=== PATIENT | female | born 1995 | race Caucasian/White ===

== ENCOUNTER 2018-07-04 17:01 | Emergency (ER) | payer OTHER, SELFPAY ==
[2018-07-04 17:03] VITALS: BP 131/73; PULSE 78; RESP 16; TEMP 36.1; O2SAT 99; BMI 21.6
[2018-07-04 19:34] VITALS: PULSE 76; RESP 14
[2018-07-04] MEDS: Ondansetron 4 MG/2 ML Vial IV (20:58)
[2018-07-04] MEDS: 0.9% Normal Saline 1,000 ML 1000 ML IV (20:58)
[2018-07-04] MEDS: 0.9% Normal Saline 1,000 ML 250 ML IV (20:58)
[2018-07-04 20:59] VITALS: PULSE 84; RESP 16
[2018-07-04 21:03] LABS: Absolute Lymphocyte Count 1.98 X10^3/ul (0.83-4.51); Basophil# 0.02 X10^3/uL; Basophil% 0.2 % (0-1); Eosinophil# 0.22 X10^3/uL; Eosinophils% 2.2 % (0-5); Hemoglobin 11.5 g/dl (12.0-15.0); Lymphocyte # 1.98 X10^3/ul (4.0); Lymphocyte % 19.8 % (19-41); Mean Corp Hgb Conc 35.9 g/gl (32-36); Mean Corpuscular Hgb 30.9 pg (27.0-32.0); Mean Platelet Vol. 10.1 fl (6.2-12.0); Neutrophil # 6.95 X10^3/uL (2.7-7.7); Neutrophil % 69.6 % (47-70); Platelet Count 202 K/mm3 (150-450); RBC Distribution Width CV 13.7 % (11.6-14.6); RBC Distribution Width SD 42.2 fl (35.1-43.9); Red Blood Count 3.72 M/mm3 (4.2-5.4)
[2018-07-04 21:09] LABS: POSITIVE COUNT NO; POSITIVE DIFFERENTIAL NO; POSITIVE MORPHOLOGY NO
[2018-07-04 21:12] LABS: Anion Gap 9 (5-15); BUN 5 mg/dL (7-18); BUN/Creat Ratio 8.3 RATIO (10-20); Calcium,Total 8.2 mg/dL (8.5-10.1); Chloride 106 mmol/L (98-107); Creatinine, Serum 0.61 mg/dL (0.55-1.02); EST Glomerular Filtration Rate 130 mL/min (>60); Est Glom Filt Rate - Afr Amer 158 mL/min (>60); Estimated Creatinine Clearance 140.68 ml/min; Glucose 78 mg/dL (74-106); Potassium 3.6 mmol/L (3.5-5.1); Sodium Level 139 mmol/L (136-145)
[2018-07-04 21:15] LABS: Bacteria 0 SEEN /hpf (None Seen); Mucous, Urine 0 SEEN /hpf (<or=2+); Red Blood Cells-Urine 0 SEEN /hpf (0-5)
[2018-07-04 21:22] LABS: Color, Urine Yellow (Yellow); Glucose, Dipstick Normal (Normal); Ketone-Dipstick Negative (Negative); Leukocyte Esterase-Dipstick 500 /ul (Negative); Nitrite-Dipstick Negative (Negative); Occult Blood-Urine Negative /ul (Negative); Protein-Dipstick Negative (Negative); Specific Gravity, Urine 1.015 (1.002-1.030); Urine Bilirubin Dipstick Negative (Negative); Urine Clarity Clear (Clear); Urine Urobilinogen Normal (Normal)
[2018-07-04 21:29] LABS: Squamous Epithelial Cells - UA 0-5 SEEN /hpf (5-10); White Blood Cells 0-5 SEEN /hpf (0-5)
--- NOTE | 2018-07-04 21:56 | ED.VISSUMM ---
- ER Visit Summary Date of Service: 07/04/18 Chief Complaint: Nausea, vomiting, dehydrated History of Present Illness: The patient is a 22 F who is currently 13 weeks . She had nausea, vomiting, diarrhea over the past 2 days. Today she felt lightheaded and near syncope. She has not had vomiting today. She denies dysuria. She states she had some nausea early on the recently had not had an issue with this. Physical Examination: Vital signs are unremarkable. Patient is sitting upright in the bravo chair. Head neck examination reveals moist mucous membranes. Heart is regular rate and rhythm. Lung sounds are clear. Abdomen is soft nontender. Active bowel sounds are noted throughout. Test Results: CBC was normal white count. Hemoglobin is 11.5. Chemistry studies normal. Urinalysis shows 500 leukocyte esterase with 0-5 white cells and 0 bacteria. Emergency Department Course and Treatment: Patient is given IV fluids and Zofran. At this time she is tolerating p.o. Nausea is significantly improved. She will be given a prescription for Zofran at home. Treatment Plan: [] Disposition: Discharge Impression: Nausea, improved This note was generated with [employer] dictation software. It may contain incorrect words, spelling, and punctuation that were not noted in review of the chart prior to signing ED Disposition - Plan for ED Patient: Chief Complaint: Nausea/Vomiting/Diarrhea Referrals: Care Physician,No Primary [Primary Care Provider] -
--- NOTE | 2018-07-04 21:59 | ED.DEP ---
ED Disposition - Plan for ED Patient: Disposition: Home or Assisted Living Chief Complaint: Nausea/Vomiting/Diarrhea Instructions: ED Nausea Vomiting Prescriptions: Ondansetron [Zofran Odt] 4 mg PO Q8H PRN PRN #10 tablet PRN Reason: Nausea Referrals: Kevin Aiken [STAFF PHYSICIAN] - 3-5 Days if not improving
[2018-07-04] MEDS: Ondansetron ODT 4 MG Tablet PO (22:19)
[2018-07-04 22:20] VITALS: BP 124/74; PULSE 83; RESP 18; O2SAT 97
--- NOTE | 2018-07-04 22:20 | ED.RN ---
THIS NURSE REVIEWED D/C INSTRUCTIONS WITH PT.PT VERBALIZED UNDERSTANDING OF INSTRUCTIONS. IV D/C. IV CATHETER INTACT. PT DENIES FURTHER NEEDS OR QUESTIONS AT THIS TIME. PT AMBULATES FROM DEPARTMENT ON OWN WITHOUT ASSISTANCE FROM STAFF
== END 2018-07-04 22:22 | disposition home or self-care (01) ==
PROVIDERS: Emergency Provider Emergency Medicine
DX: O26.891 Other specified pregnancy related conditions, first trimester (principal); R11.2 Nausea with vomiting, unspecified; R19.7 Diarrhea, unspecified; R42 Dizziness and giddiness; Z3A.13 13 weeks gestation of pregnancy
CPT/HCPCS: 80048; 81001; 85025; 96361; 96374; 99283; J7030; A4216

== ENCOUNTER 2019-01-08 01:55 | Inpatient (IN) | payer OTHER, SELFPAY ==
[2019-01-08 02:34] VITALS: BMI 26.9
[2019-01-08] MEDS: Lactated Ringers 1,000 ML 50 ML IV ×4 (02:35→22:48)
[2019-01-08 02:52] LABS: Hemoglobin 12.6 g/dl (12.0-15.0); Mean Corp Hgb Conc 34.1 g/gl (32-36); Mean Corpuscular Hgb 30.4 pg (27.0-32.0); Mean Corpuscular Volume 89.2 fL (81-99); Mean Platelet Vol. 10.9 fl (6.2-12.0); Platelet Count 189 K/mm3 (150-450); RBC Distribution Width CV 16.6 % (11.6-14.6); RBC Distribution Width SD 53.9 fl (35.1-43.9); Red Blood Count 4.15 M/mm3 (4.2-5.4); White Blood Count 10.4 K/mm3 (4.4-11.0)
[2019-01-08 02:57] LABS: Scan Indicated on CBC? Y/N NO
[2019-01-08] MEDS: Nalbuphine 10 MG/ML Ampul IV (03:57)
[2019-01-08 04:08] LABS: Group B Strep DNA By PCR Negative (Negative); Internal Control PASS; Probe Check PASS; Specimen Processing Control PASS
[2019-01-08] MEDS: Ondansetron 4 MG/2 ML Vial IV ×2 (05:23→14:45)
[2019-01-08] MEDS: fentaNYL-bupivacaine (epidural) 100 ML BAG EPIDURAL ×4 (06:34→22:25)
[2019-01-08] MEDS: Oxytocin 30 units/NS 500 ml 30 UNITS/500 ML IV.SOLN IV (08:30)
--- NOTE | 2019-01-08 09:14 | PCM.HP.OB ---
- Problem List (1) PROM (premature rupture of membranes) Status: Acute (2) Positive GBS test Status: Acute (3) Iron deficiency anemia Status: Acute (4) History of depression Status: Acute History Date of Admission: 01/08/19 Final LEE: 01/05/19 Gestational age: 40 Weeks and 3 Days History of this : This is a 23 year-old, G [1], P [000], at 40 weeks gestational age. Presented to L&D with complaint of leakage of fluid around 0100. Upon arrival, gross rupture of membranes. No contractions. Allergies No Known Allergies Allergy (Verified 01/08/19 02:31) Home Medications: Home Medications Vits [Prenatabs FA] 1 tablet PO DAILY 07/04/18 Famotidine [Pepcid] 20 mg PO BID 01/08/19 Smoking Status: Former smoker Heart Tracin, moderate variability, accels, no decels TOCO: every 2-4 minutes, mild. Pitocin at 1 mu History Past Pregnancies: Past Pregnancies Delivery Date Name GA/Weeks Outcome Route Weight Infant Gender Labor Length Anesthesia Delivery Location Provider FOB Labs: CF negative RPR negative Rubella Immune HBsAG HIV negative. A positive GC/CT negative GBS bacteruria in beginning of . Expected Delivery Method: Spontaneous Vaginal Review of Systems Constitutional: Denies: Chills, Fever, Weight Change HEENT: Denies: Head Aches, Sinus Congestion, Sinus Drainage Cardiovascular: Denies: Chest Pain, Palpitations Respiratory: Denies: Cough, Shortness of breath at rest, Sputum production Gastrointestinal: Denies: Abdominal Pain, Nausea, Vomiting Genitourinary: Denies: Dysuria Neurological: Denies: Numbness, Tingling, Focal weakness Psychiatric: Denies: Anxiety, Depression, Homicidal Ideations, Suicidal Ideations Physical Exam General: Alert, Oriented x3, No apparent distress HEENT: Atraumatic, Normocephalic Cardiovascular: Regular rate, Regular Rhythm, No murmurs Lungs: Clear to auscultation, Normal air movement, No rhonchi, No wheeze Abdomen: Bowel Sounds Present, Soft, Gravid Extremities:: No edema RELIGIOUS ACTIVITIES DIRECTOR: Normal external genitalia Estimated gestational size: Appropriate for gestational size Presentation: Cephalic Assessment/Plan All Active Problems PROM (premature rupture of membranes) (Acute) Positive GBS test (Acute) Iron deficiency anemia (Acute) History of depression (Acute) This is a 23 year-old, G [1], P [0], at 40 weeks gestational age. A: Postdates PROM Category 1 FHT P: 1) Admit to L&D. 2) Pitocin augmentation 3) notified of patient status and plan of care.
[2019-01-08] MEDS: Amnioinfusion- 0.9% NS 1,000 ML IV.SOLN. INTRA-UTER (13:30)
--- NOTE | 2019-01-08 14:35 | PCM.PN.OB ---
Patient Problems: Active and Suspected Problems PROM (premature rupture of membranes) (Acute) Positive GBS test (Acute) Iron deficiency anemia (Acute) History of depression (Acute) Subjective: Called to L&D for vaginal bleeding and clots by ray Toth RN. Patient comfortable in bed with epidural. Objective: FHT: 125, moderate variability, accels, occasional variable decels. Category 2 FHT.Amnioinfusion started and resolved. TOCO: every 2-4 minutes. Cervical exam: 6cm/80%/-1. Blood tinged fluid with few small clots. No sign of abruption at this time. - Physical Exam Weight: 171 lb 15.369 oz Body Mass Index (BMI) 26.9 Intake and Output for Last 24 Hours 01/06/19 01/07/19 01/08/19 22:59 23:59 23:59 Intake Total 1480 / 1480 Output Total 500 / 500 Balance 980 / 980 Laboratory Tests Past 24 Hrs 01/08/19 01/08/19 01/08/19 02:30 02:30 02:30 WBC 10.4 RBC 4.15 L Hgb 12.6 Hct 37.0 MCV 89.2 MCH 30.4 MCHC 34.1 RDW 16.6 H RDW Differential 53.9 H Plt Count 189 MPV 10.9 Group B Strep DNA Negative Specimen Comment Not Reportable Blood Type A POSITIVE Antibody Screen NEGATIVE Medical Necessity - Tobacco Use Smoking Status: Never smoker Assessment/Plan All Active Problems PROM (premature rupture of membranes) (Acute) Positive GBS test (Acute) Iron deficiency anemia (Acute) History of depression (Acute) A: Active labor, progressing Category 2 FHT P: 1) Active labor progressing, continue with active management and pitocin augmentation. 2) Amnioinfusion 3) notified of patient status and agrees with plan.
[2019-01-08] MEDS: DiphenhydrAMINE 50 MG/ML Syringe 25 MG IV (18:02)
--- NOTE | 2019-01-08 20:00 | PCM.PN.OB ---
Patient Problems: Active and Suspected Problems PROM (premature rupture of membranes) (Acute) Positive GBS test (Acute) Iron deficiency anemia (Acute) History of depression (Acute) Subjective: Resting in bed. Family at bedside. Comfortable with epidural. IUPC and FSE on. Objective: FHT 145, moderate variability, variable decelerations, Category 2 TOCO: every 2-3 minutes. Was having 400mvus. Pitocin turned down to 2mu's. Amnioinfusion at 100ml per hour. Cervical exam: 7cm/75%+1, ROP. Patient previously asynclitic. - Physical Exam Weight: 171 lb 15.369 oz Body Mass Index (BMI) 26.9 Intake and Output for Last 24 Hours 01/06/19 01/07/19 01/08/19 22:59 23:59 23:59 Intake Total 4856 / 4856 Output Total 1050 / 1050 Balance 3806 / 3806 Laboratory Tests Past 24 Hrs 01/08/19 01/08/19 01/08/19 02:30 02:30 02:30 WBC 10.4 RBC 4.15 L Hgb 12.6 Hct 37.0 MCV 89.2 MCH 30.4 MCHC 34.1 RDW 16.6 H RDW Differential 53.9 H Plt Count 189 MPV 10.9 Group B Strep DNA Negative Specimen Comment Not Reportable Blood Type A POSITIVE Antibody Screen NEGATIVE Medical Necessity - Tobacco Use Smoking Status: Former smoker Assessment/Plan All Active Problems PROM (premature rupture of membranes) (Acute) Positive GBS test (Acute) Iron deficiency anemia (Acute) History of depression (Acute) A: Active labor, protracted Category 2 FHT P: 1) Continue with expectant management. 2) Positional changes for ROP position 3) notified of patient status and cervical change.
[2019-01-08] MEDS: Acetaminophen 325 MG Tablet PO (21:26)
--- NOTE | 2019-01-08 21:28 | PCM.PN.OB ---
Patient Problems: Active and Suspected Problems PROM (premature rupture of membranes) (Acute) Positive GBS test (Acute) Iron deficiency anemia (Acute) History of depression (Acute) Subjective: Resting in bed on right side. Objective: 135, moderate variability, accels, no decels, Category 1 FHT TOCO: every 2-4 minutes, coupling. Pitocin at 2mu's Cervix 8cm/80%/+2. Amnioinfusion continues. Oral Temperature 100.5 - Physical Exam Weight: 171 lb 15.369 oz Body Mass Index (BMI) 26.9 Intake and Output for Last 24 Hours 01/06/19 01/07/19 01/08/19 22:59 23:59 23:59 Intake Total 4856 / 4856 Output Total 1050 / 1050 Balance 3806 / 3806 Laboratory Tests Past 24 Hrs 01/08/19 01/08/19 01/08/19 02:30 02:30 02:30 WBC 10.4 RBC 4.15 L Hgb 12.6 Hct 37.0 MCV 89.2 MCH 30.4 MCHC 34.1 RDW 16.6 H RDW Differential 53.9 H Plt Count 189 MPV 10.9 Group B Strep DNA Negative Specimen Comment Not Reportable Blood Type A POSITIVE Antibody Screen NEGATIVE Medical Necessity - Tobacco Use Smoking Status: Former smoker Assessment/Plan All Active Problems PROM (premature rupture of membranes) (Acute) Positive GBS test (Acute) Iron deficiency anemia (Acute) History of depression (Acute) A:Active labor progressing Category 1 FHT P: 1) Labor progressing. present and completed cervical exam. Ok to continue with active management at this time. 2) Maternal Fever, Tylenol given. Will continue to monitor. 3) Continue with pitocin augmentation.
[2019-01-08] MEDS: 0.9% Saline Lock 10 ML Syringe IV (22:31)
[2019-01-08] MEDS: Amnioinfusion- 0.9% NS 1,000 ML IV.SOLN. 1000 ML INTRA-UTER (22:48)
[2019-01-09] MEDS: Oxytocin 30 units/NS 500 ml 30 UNITS/500 ML IV.SOLN 334 UNITS IV (00:12)
[2019-01-09] MEDS: Oxytocin 30 units/NS 500 ml 30 UNITS/500 ML IV.SOLN 167 UNITS IV (00:42)
--- NOTE | 2019-01-09 00:50 | PCM.OB.VAG ---
- Problem List (1) PROM (premature rupture of membranes) Status: Acute (2) Positive GBS test Status: Acute (3) Iron deficiency anemia Status: Acute (4) History of depression Status: Acute (5) (normal spontaneous vaginal delivery) Status: Acute (6) Periurethral abrasion, delivered, current hospitalization Status: Acute Vaginal Delivery Maternal Presentation: Spontaneous Rupture of Membranes Amniotic Membrane Rupture Type: Spontaneous at home Rupture of Membrane time: 01/08/19 at 0100 Amniotic Fluid Description: Clear Final LEE Source: LMP [place] doctor who attended delivery (if requested by OB): Starr Jean Date of Procedure: 01/09/19 Pre-Operative Diagnosis: PROM Post-Operative Diagnosis: Surgery/ Procedure Performed: Spontaneous Vaginal Delivery Type of Anesthesia: Epidural, Local with 1% lidocaine Description of Procedure: Progressed to complete with strong urge to push. head +3 station with first maternal push, good pushing effort and head delivered after 20 minutes of maternal pushing effort. of viable male over intact perineum. Bilateral periurethral lacerations present. Infant head delivered and shoulders forth coming. Anterior nuchal hand and shoulders transverse. Allowed restitution and good maternal pushing effort. Maternal head of bed already lowered, maternal legs back to assist with maternal positioning. Shoulders forthcoming and delivered, placed on maternal abdomen. 1 minute 30 seconds from delivery of head to delivery of body. called to delivery once head delivered. Body dystocia, anterior nuchal hand, loose CAN x1, delivered through. delivered and placed on maternal abdomen. Poor tone and weak cry. Cord clamped and cut and taken to warmer for evaluation, required CPAP. APGARS 7,7,9. Pitocin started for active 3rd stage management. Placenta delivered via maternal effort, intact, 3 vessel cord. Perineum inspected and revealed bilateral periurethral lacerations, repaired under epidural analgesia and 1% Lidocaine. Fundus firm, hemostasis achieved. Vaginal sweep completed, sponge and instrument count correct. Mother planning to breastfeed. Mom and baby stable and placed skin to skin with SpO2 monitoring. Family bonding well. Presentation: Vertex Placental Delivery Description: Spontaneous Placenta Disposition: [facility] Cord Vessel Description: 3 Vessels Cord Entanglement: Around neck x 1, loose Estimated Blood Loss: 300 ml A gender: Male (1 minute): 7 (5 minute): 7 - 10 minute =9 Episiotomy Description: None Laceration: Periurethral Extnsion/lac Medications given after delivery: IV Pitocin Complications: None
--- NOTE | 2019-01-09 01:06 | OP.PCM_ITS ---
- Problem List (1) PROM (premature rupture of membranes) Status: Acute (2) Positive GBS test Status: Acute (3) Iron deficiency anemia Status: Acute (4) History of depression Status: Acute (5) (normal spontaneous vaginal delivery) Status: Acute (6) Periurethral abrasion, delivered, current hospitalization Status: Acute Vaginal Delivery Maternal Presentation: Spontaneous Rupture of Membranes Amniotic Membrane Rupture Type: Spontaneous at home Rupture of Membrane time: 01/08/19 at 0100 Amniotic Fluid Description: Clear Final LEE Source: LMP [place] doctor who attended delivery (if requested by OB): Starr Jean Date of Procedure: 01/09/19 Pre-Operative Diagnosis: PROM Post-Operative Diagnosis: Surgery/ Procedure Performed: Spontaneous Vaginal Delivery Type of Anesthesia: Epidural, Local with 1% lidocaine Description of Procedure: Progressed to complete with strong urge to push. head +3 station with first maternal push, good pushing effort and head delivered after 20 minutes of maternal pushing effort. of viable male over intact perineum. Bilateral periurethral lacerations present. Infant head delivered and shoulders forth coming. Anterior nuchal hand and shoulders transverse. Allowed restitution and good maternal pushing effort. Maternal head of bed already lowered, maternal legs back to assist with maternal positioning. Shoulders forthcoming and delivered, placed on maternal abdomen. 1 minute 30 seconds from delivery of head to delivery of body. called to delivery once head delivered. Body dystocia, anterior nuchal hand, loose CAN x1, delivered through. delivered and placed on maternal abdomen. Poor tone and weak cry. Cord clamped and cut and taken to warmer for evaluation, required CPAP. APGARS 7,7,9. Pitocin started for active 3rd stage management. Placenta delivered via maternal effort, intact, 3 vessel cord. Perineum inspected and revealed bilateral periurethral lacerations, repaired under epid ural analgesia and 1% Lidocaine. Fundus firm, hemostasis achieved. Vaginal sweep completed, sponge and instrument count correct. Mother planning to breastfeed. Mom and baby stable and infant placed skin to skin with SpO2 monitoring. Family bonding well. Presentation: Vertex Placental Delivery Description: Spontaneous Placenta Disposition: [facility] Cord Vessel Description: 3 Vessels Cord Entanglement: Around neck x 1, loose Estimated Blood Loss: 300 ml Infant A gender: Male (1 minute): 7 (5 minute): 7 - 10 minute =9 Episiotomy Description: None Laceration: Periurethral Extnsion/lac Medications given after delivery: IV Pitocin Complications: None
[2019-01-09] MEDS: Ibuprofen 600 MG Tablet PO ×3 (03:20→18:51)
[2019-01-09 03:27] VITALS: BP 135/77; PULSE 99; RESP 17; TEMP 37.1; O2SAT 97
[2019-01-09 08:49] VITALS: BP 100/54; PULSE 83; RESP 14; TEMP 36.9
[2019-01-09 12:04] VITALS: BP 123/65; PULSE 95; RESP 16; TEMP 36.8
[2019-01-09 16:00] VITALS: BP 123/75; PULSE 84; RESP 18; TEMP 37.1; O2SAT 96
[2019-01-09 20:00] VITALS: BP 113/67; PULSE 89; RESP 16; TEMP 36.6; O2SAT 98
[2019-01-10 02:12] VITALS: BP 109/66; PULSE 90; RESP 16; TEMP 37.2; O2SAT 98
[2019-01-10 09:15] VITALS: BP 114/61; PULSE 80; RESP 16; TEMP 36.6; O2SAT 100
[2019-01-10] MEDS: Ibuprofen 600 MG Tablet PO (09:40)
--- NOTE | 2019-01-10 12:37 | PN.OBGYN_ITS ---
Patient Problems: Active and Suspected Problems PROM (premature rupture of membranes) (Acute) Positive GBS test (Acute) Iron deficiency anemia (Acute) History of depression (Acute) (normal spontaneous vaginal delivery) (Acute) Periurethral abrasion, delivered, current hospitalization (Acute) Subjective: Doing well per patient and nursing staff. with some difficulty, tongue tie per agricultural engineering technologist, working with for support and going to try nipple shield. Denies any headaches, vision changes, chest pain, SOB, increased vaginal bleeding or clots, no leg pain. Planning D/C home tomorrow to have additional support for . - Physical Exam General: Alert, Oriented x3, Cooperative HEENT: Atraumatic, Normocephalic Neck: Supple, Trachea Midline Lungs: Clear to auscultation, Normal air movement, No rhonchi, No wheeze Cardiovascular: Regular rate, Regular Rhythm, No murmurs Abdomen: Bowel Sounds Present, Soft, - - Fundus firm 3 below U Extremities: No edema Psych/Mental Status: Normal Affect, Appropriate Vital Signs Temp Pulse Resp BP Pulse Ox 97.9 F 80 16 114/61 100 01/10/19 09:15 01/10/19 09:15 01/10/19 09:15 01/10/19 09:15 01/10/19 09:15 Oxygen Delivery Method Room Air Weight: 171 lb 15.369 oz Body Mass Index (BMI) 26.9 Intake and Output for Last 24 Hours 01/08/19 01/09/19 01/10/19 23:59 23:59 23:59 Intake Total 4856 / 4856 Output Total 1050 / 1050 400 / 400 Balance 3806 / 3806 -400 / -400 Medical Necessity - Tobacco Use Smoking Status: Former smoker Assessment/Plan All Active Problems PROM (premature rupture of membranes) (Acute) Positive GBS test (Acute) Iron deficiency anemia (Acute) History of depression (Acute) (normal spontaneous vaginal delivery) (Acute) Periurethral abrasion, delivered, current hospitalization (Acute) A:PPD #2 P: 1) Routine care 2) support provided. Patient still desires to continue and utilizing support for services. 3) Planning discharge home tomorrow.
--- NOTE | 2019-01-10 12:42 | DCINST_ITS ---
Discharge Diet: No Restrictions Discharge Activity: Return to Normal Activity, May Shower, May Take a Tub Bath May resume sexual activity in: 4-6 weeks Weight Bearing Status: Full weight bearing Call your doctor if your incision/area has: Continuous Slow Oozing, Sudden Increased Bleeding, Increased Pain/ Swelling, Increased Redness, Foul Smelling Discharge Call your doctor if you observe: Fever of 101 or Higher, Inability to urinate, Inability to have a bowel movement, Using more than one pad per hour, Increased palpitations (irregular heartbeat), Calf discomfort, Uncontrolled pain Additional Instructions: If you experience any of the following, contact your healthcare provider. * Bleeding that soaks a pad every hour for 2 hours * Fever 100.4 or higher * Unrelieved incision or abdominal pain * Swelling, redness, discharge or bleeding from your incision or episiotomy site * Your incision begins to separate * Problems urinating (including inability to urinate or burning while ur inating). * Visual changes * Severe headache * Flu-like symptoms * Pain or redness in one of both of your breasts * Pain, warmth, tenderness or swelling in your legs, especially the calf area * Frequent nausea and vomiting * Symptoms of depression or anxiety If you experience any of the following, call 911 or go to the nearest Emergency Room. * Chest pain * Problems breathing * Seizure activity * Partial or complete paralysis of a body part, slurred speech, weakness or drooping of the face, or a sudden inability to walk or hold your balance Allergies/Adverse Reactions: Allergies No Known Allergies Allergy (Verified 01/08/19 02:31) Medications to take at Discharge Vits [Prenatabs FA ] 1 tablet PO DAILY 07/04/18 Famotidine [Pepcid] 20 mg PO BID 01/08/19 Ibuprofen [Motrin] 600 mg PO Q6H PRN PRN tablet 01/10/19 Please Follow Up With: Tabitha Eli CNM When: Call to make an appointment with your doctor in 2weeks and 6 weeks. Primary Care Physician: Care Physician,No Primary [Primary Care Provider] - Test Results: Test results from this visit will be discussed in further detail at your follow- up appointment, if applicable.
[2019-01-10 13:45] LABS: Hematocrit 33.2 % (37-47); Hemoglobin 11.1 g/dl (12.0-15.0); Mean Corp Hgb Conc 33.4 g/gl (32-36); Mean Corpuscular Hgb 30.1 pg (27.0-32.0); Mean Platelet Vol. 10.4 fl (6.2-12.0); Platelet Count 167 K/mm3 (150-450); RBC Distribution Width CV 17.3 % (11.6-14.6); RBC Distribution Width SD 56.9 fl (35.1-43.9); Red Blood Count 3.69 M/mm3 (4.2-5.4); White Blood Count 11.5 K/mm3 (4.4-11.0)
[2019-01-10 13:51] LABS: Scan Indicated on CBC? Y/N NO
[2019-01-10 13:54] VITALS: BP 117/75; PULSE 85; RESP 16; TEMP 36.6; O2SAT 99
[2019-01-10 20:15] VITALS: BP 137/71; PULSE 101; RESP 18; TEMP 36.7
[2019-01-11] MEDS: Ibuprofen 600 MG Tablet PO ×2 (00:12→11:36)
[2019-01-11 01:50] VITALS: BP 116/54; PULSE 78; RESP 16; TEMP 36.9
[2019-01-11 06:30] VITALS: BP 120/70; PULSE 73; RESP 18; TEMP 37
--- NOTE | 2019-01-11 09:09 | CASEMGMT ---
Addendum entered and electronically signed by Shirin Ivory 03/27/19 09:45: Reviewed and approve FINISH CLEANER student documentation below. -Shirin Ivory, JUAREZ, RN NICU Original Note: Social Work Labor and Delivery Date of Referral: Time of Referral: 520 Referred by: Dr. Starr Jean Date of intervention: 01/10/19 Time of intervention: 140pm Reason for Referral: maternal history of anxiety and depression. History obtained from: medical record, Mother of baby (ROSALIND) Ewa Stanley, Father of baby, HALEY Wright Household composition: ROSALIND lives with HALEY and HALEY's mother and older brother. MOB and FOB have plans to buy their own home and move to the [place] area near ROSALIND's mother. MOB denied any history of domestic violence or safety concerns for self or baby. Patients parent/guardian status: MOB and FOB have been on and off for the past 5 years. Baby Yunior is the first child for both parents. Medical History: ROSALIND is to 1 after the of baby Yunior. ROSALIND's car began at 6weeks. Yunior was born on 01/09/19 at 7lbs and 11oz with scores of 6, 7, and 9 after 23 hours of labor. Educational Status: ROSALIND has a college degree in Zoology. HALEY dropped out of college. Both confirmed to be able to read, write, and comprehend. Financial Status: ROSALIND worked throughout the at [employer], then worked at [employer], and now works at [employer] with flexible hours. 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 HALEY works at [employer] and will have some time off in the following week. Infant Supplies: MOB and FOB report to be prepared with car seat, bassinet, crib, clothing, diapers, wipes, and a breast pump. Childcare/givers: MOB and FOB will be primary care providers. MOB's mother and father will also be supplemental care givers. FOB's mother will provide childcare, as well. Transportation: MOB and FOB denied any issues with transportation. Programs/agencies involved: MOB is connected with [place] and accepted [facility] information. No [facility] referral accepted due to family moving soon. Children Services/Legal Issues: MOB denied any history of legal issues or children services involvement for both self and FOB. Behavioral Health Issues: Mental Health: MOB was diagnosed with anxiety and depression at the age of 12. Diagnosis was contributed to being bullied at school. Depression symptoms included self harm and attempted suicide at age 14 and was hospitalized. MOB began Celexa as treatment and stopped medication roughly 3 years ago and reports to be feeling great. Substance Use History: MOB reported to have used marijuana in college. MOB also reports to have experimented 1-2 times with Sravanthi and Ecstasy but has not for over two years now. MOB reports this to have happened in college. MOB denied any other substance usage and reports to rarely drink alcohol. MOB used tobacco socially in college and no longer does so. MOB has no plans to use substances again during lifetime. Family History: MOB did not identify any family history of concern. Drug Screens: MOB tested negative on 05/17/18 at [facility] visit. Family/Social Stressors: MOB reported moving soon is a stressor but also something to be looking forward to and having excitement about. Support Systems: MOB reports FOB to be main support system. MOB's mother and FOB's mother are also supports. PPD/Shaken Baby/Safe Sleeping: Social work sourcing intern reviewed PPD information with MOB and FOB. Also educated about shaken baby and safety precautions. Safe sleeping reviewed and all topics understood by parents. ASSESSMENT: MOB and FOB were in room with MOB's mother and baby Yunior. FOB stayed for the duration of the conversation regarding general information and PPD/Shaken baby/ Safe sleeping information. MOB and FOB reported this to be unexpected and that it went well. FOB and MOB's mother left room so MOB could speak privately. MOB disclosed labor was not great as it took near 23 hours. MOB also disclosed to be very excited for Yunior's arrival. MOB spoke about anxiety and depression and that was due to being bullied in middle school during teen years. MOB reported that depression was also due to having negative head space of poor thoughts. MOB had attempted suicide at age 14 and was hospitalized and received treatment with medication. MOB reported to not have any thoughts of self harm or suicide since age 15, during , or currently. MOB's safety plan if feeling this way again is to talk to FOB and call . Social work sourcing intern reviewed checklist for PPD and emphasized it is important to keep in mind for symptoms and have self awareness. 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 With topic of substance usage, MOB reported to have no desire to use again as it was a one time thing and thats all I wanted in regards to trying any substances again. MOB reported to be excited and seemingly confident to return home. PLAN: MOB home with baby. PPD/WIC/[facility] information and [facility] resources packet provided per request of MOB. No other services indicated or requested at this time. -Sweetie Garcia, FINISH CLEANER Student Rigging Loft Repairer.
[2019-01-11 11:57] VITALS: BP 122/66; PULSE 83; RESP 16; TEMP 36.6; O2SAT 100
== END 2019-01-11 14:00 | disposition home or self-care (01) | DRG 807 ==
PROVIDERS: Advanced Practice Midwife; Admitting Provider Obstetrics & Gynecology; Visit Provider Obstetrics & Gynecology
DX: O42.92 Full-term premature rupture of membranes, unspecified as to length of time between rupture and onset of labor (principal); Z37.0 Single live birth; Z3A.40 40 weeks gestation of pregnancy; O99.824 Streptococcus B carrier state complicating childbirth; Z87.891 Personal history of nicotine dependence; O99.02 Anemia complicating childbirth; D50.9 Iron deficiency anemia, unspecified; O71.82 Other specified trauma to perineum and vulva; O66.9 Obstructed labor, unspecified; O69.81X0 Labor and delivery complicated by cord around neck, without compression, not applicable or unspecified
CPT/HCPCS: 59025; 59050; 85027; 86850; 86900; 87081; 87653; 99218; J7030; J7120; A4216; G0378; J2405; J3490